=== PATIENT | female | born 1970 | race Caucasian/White ===

== ENCOUNTER → 2022-02-15 | Outpatient (CLI) | payer OTHER | LOC: MAMO 10:30 | DX: Z12.31 Encounter for screening mammogram for malignant neoplasm of breast (principal); F32.89 Other specified depressive episodes | CPT/HCPCS: 77063; 77067 ==

== ENCOUNTER → 2022-03-15 | Outpatient (CLI) | payer OTHER | LOC: MAMO 03-06 10:00 → US 03-06 10:30 → MAMO 03-06 11:00 | DX: R92.8 Other abnormal and inconclusive findings on diagnostic imaging of breast (principal); N60.01 Solitary cyst of right breast | CPT/HCPCS: 76641-RT; 77065; G0279 ==